=== PATIENT | female | born 1945 | race Caucasian/White ===

== ENCOUNTER 2016-06-29 19:20 | Emergency (ER) | payer OTHER ==
[~2016-06-29] VITALS: Ht 170.2 cm; Wt 67.0 kg
[2016-06-29] MEDS ORDERED: PERCOCET 5/31 TABLET PO (20:35)
[2016-06-29 21:30] VITALS: BP 141/86
== END 2016-06-29 21:30 | disposition home or self-care (01) ==
LOC: EME → EDBD 19:20 → EME 21:30
DX: S42.291A Other displaced fracture of upper end of right humerus, initial encounter for closed fracture (principal); M25.551 Pain in right hip; W01.0XXA Fall on same level from slipping, tripping and stumbling without subsequent striking against object, initial encounter; Y99.0 Civilian activity done for income or pay; F17.200 Nicotine dependence, unspecified, uncomplicated
CPT/HCPCS: 73030; 73502; 99281; 99285; J2270